=== PATIENT | female | born 1950 | race Caucasian/White ===

== ENCOUNTER → 2017-06-02 | Outpatient (CLI) | payer OTHER | LOC: RAD 03:31 | DX: Z12.31 Encounter for screening mammogram for malignant neoplasm of breast (principal) ==

== ENCOUNTER → 2018-06-03 | Outpatient (CLI) | payer OTHER | LOC: RAD 01:05 | DX: Z12.31 Encounter for screening mammogram for malignant neoplasm of breast (principal) ==

== ENCOUNTER → 2019-06-13 | Outpatient (CLI) | payer OTHER | LOC: BC 13:01 | DX: Z12.31 Encounter for screening mammogram for malignant neoplasm of breast (principal) ==

== ENCOUNTER → 2020-06-14 | Outpatient (CLI) | payer OTHER | LOC: BC 12:37 | PROVIDERS: ATTEND Internal Medicine | DX: Z12.31 Encounter for screening mammogram for malignant neoplasm of breast (principal) ==

== ENCOUNTER → 2021-06-17 | Outpatient (CLI) | payer OTHER | LOC: BC 11:21 | PROVIDERS: ATTEND Internal Medicine | DX: Z12.31 Encounter for screening mammogram for malignant neoplasm of breast (principal); N64.89 Other specified disorders of breast ==